=== PATIENT | female | born 1990 | race Two or more races ===

== ENCOUNTER 2019-12-26 20:11 | Emergency (ER) | payer MEDICAID ==
[~2019-12-26] VITALS: Ht 167.6 cm; Wt 61.2 kg
[2019-12-26 20:48] LABS: *URINE HCG, QUAL NEGATIVE (NEGATIVE)
[2019-12-26] MEDS ORDERED: DIAZEPAM 2 MG TABLET PO ONE (22:30)
[2019-12-26] MEDS ORDERED: IBUPROFEN 600 MG TABLET PO ONE (22:30)
[2019-12-26] MEDS ORDERED: IV NORMAL SALINE 1000 ML BAG IV ONE (22:30)
[2019-12-26] MEDS ORDERED: IBUPROFEN 600 MG TABLET ONE (22:31)
[2019-12-26] MEDS ORDERED: DIAZEPAM 5 MG TABLET ONE (22:32)
[2019-12-26 23:00] VITALS: BP 112/80
== END 2019-12-26 23:01 | disposition home or self-care (01) ==
LOC: ER 20:11
DX: S16.1XXA Strain of muscle, fascia and tendon at neck level, initial encounter (principal); S39.012A Strain of muscle, fascia and tendon of lower back, initial encounter; V43.52XA Car driver injured in collision with other type car in traffic accident, initial encounter; Y92.410 Unspecified street and highway as the place of occurrence of the external cause; M62.830 Muscle spasm of back
CPT/HCPCS: 71045; 72100; 72125; 73030; 84703; 93005; A4663

== ENCOUNTER 2021-07-14 00:40 | Emergency (ER) | payer MEDICAID ==
[~2021-07-14] VITALS: Ht 167.6 cm; Wt 68.9 kg
--- NOTE | 2021-07-14 00:45 | NUR ---
Meet desai in ED - 07/14/21 at [address] Patino at [facility] for MSE.
--- NOTE | 2021-07-14 00:58 | NUR ---
Dr. Patino at bedside for MSE.
[2021-07-14] MEDS ORDERED: LIDOCAINE HCL 2% 20 ML VIAL ONE (01:02)
[2021-07-14] MEDS ORDERED: OXYC-128 PO (01:06)
[2021-07-14] MEDS ORDERED: TDAP DIPH,PERTUSS,TET VAC/PF 0.5 ML DISP.SYRIN IM ONE ×2 (01:06→01:15)
[2021-07-14] MEDS ORDERED: LIDOCAINE HCL 2% 20 ML VIAL IJ ONE (01:15)
[2021-07-14] MEDS ORDERED: CEFTRIAXONE /D5W 50ML IVPB **ER PYXIS IV ONE (01:20)
[2021-07-14] MEDS ORDERED: BACITRACIN ZINC OINT 15 GM TUBE ONE (01:29)
[2021-07-14] MEDS ORDERED: CEFA500C29 PO (01:30)
[2021-07-14] MEDS ORDERED: BACITRACIN ZINC OINT 15 GM TUBE TOP ONE (01:30)
[2021-07-14] MEDS ORDERED: CEFTRIAXONE 1 G in IV DEXTROSE 5% 50 ML IV ONE (01:30)
--- NOTE | 2021-07-14 01:38 | NUR ---
Patient discharged to home in stable condition. Written and verbal after care instructions given. Patient verbalizes understanding of instructions. Stressed follow up or return to ER for worsening s/s. Patient out of ER with steady gait, no acute signs of distress, VSS, all belongings taken, IV site discontinued.
[2021-07-14 01:39] VITALS: BP 118/75
== END 2021-07-14 01:39 | disposition home or self-care (01) ==
LOC: ER 00:40
DX: S81.012A Laceration without foreign body, left knee, initial encounter (principal); V00.841A Fall from standing electric scooter, initial encounter; Y92.89 Other specified places as the place of occurrence of the external cause; S80.02XA Contusion of left knee, initial encounter
CPT/HCPCS: 12002; 90471; 90715; 96374; 99284; J0696; J3490; A4663

== ENCOUNTER 2024-10-26 10:24 | Emergency (ER) | payer MEDICAID, OTHER ==
[~2024-10-26] VITALS: Ht 167.6 cm; Wt 84.4 kg
[~2024-10-26 10:24] MED LIST: CEFA500C29 PO; OXYC-128 PO
[2024-10-26 10:26] VITALS: BP 127/75; O2SAT 95
[2024-10-26 11:15] LABS: PLATELET COUNT (AUTO) 342 K/uL (179-408); RED BLOOD CELL COUNT(AUTO) 4.59 MIL/uL (3.63-4.92); RED CELL DISTRIBUTION WIDTH 14.1 % (12.3-17.7); WHITE BLOOD COUNT (AUTO) 9.9 K/uL (3.8-11.8)
[2024-10-26 11:17] LABS: *BILIRUBIN,URIN NEGATIVE (NEGATIVE); *BLOOD, URINE NEGATIVE (NEGATIVE); *CLARITY,URINE CLEAR (CLEAR); *COLOR,URINE YELLOW (YELLOW); *KETONES,URINE NEGATIVE (NEGATIVE); *PROTEIN,URINE NEGATIVE (NEGATIVE); *UROBILINOGEN,URINE 0.2 E.U./dl (NORMAL); LEUKOCYTE ESTERASE ,URINE NEGATIVE (NEGATIVE); NITRITE, URINE NEGATIVE (NEGATIVE); UGLUCOSE NEGATIVE (NEGATIVE)
[2024-10-26 11:27] LABS: CREATININE 0.6 mg/dL (0.6-1.3); SODIUM SERUM 141 mmol/L (136-145); UREA NITROGEN, BLOOD 9 mg/dL (7-18)
[2024-10-26 11:33] LABS: ASPARTATE AMINOTRANSFERASE 14 U/L (15-37); TOTAL PROTEIN, SERUM 7.5 g/dL (6.4-8.2)
[2024-10-26 11:44] LABS: PREGNANCY TEST SERUM QUAN < 1 miul/L (0-6)
[2024-10-26] MEDS ORDERED: IBUP-1957 PO (12:56)
[2024-10-26] MEDS ORDERED: DOXY100C5 PO (12:56)
[2024-10-26] MEDS ORDERED: HYDR12.55 PO (13:03)
== END 2024-10-26 13:08 | disposition home or self-care (01) ==
LOC: ER 10:24
DX: R10.31 Right lower quadrant pain (principal); N93.9 Abnormal uterine and vaginal bleeding, unspecified; R10.2 Pelvic and perineal pain; Z97.5 Presence of (intrauterine) contraceptive device
CPT/HCPCS: 36415; 76856; 83690; 84484; 85025; 85730; 87086; A4606; A4663